=== PATIENT | male | born 1975 | race Two or more races ===

== ENCOUNTER 2024-06-28 06:27 | Day surgery (SDC) | payer OTHER ==
[2024-06-28] MEDS ORDERED: FLUMAZENIL 0.5 MG/5 ML ML IV STA (09:23)
[2024-06-28] MEDS ORDERED: DIPHENHYDRAMINE HCL 50 MG/ML VIAL 1ML IV ONE (09:30)
[2024-06-28] MEDS ORDERED: MIDAZOLAM HCL 2 MG/2 ML VIAL IV ONE (09:30)
[2024-06-28] MEDS ORDERED: fentaNYL CITRATE 50 MCG/ML AMPUL IV PUSH ONE (09:30)
== END 2024-06-28 10:40 | disposition home or self-care (01) ==
LOC: AMB-ENDOS 06:27
PROVIDERS: ATTEND Colon & Rectal Surgery
DX: D12.2 Benign neoplasm of ascending colon (principal); K63.5 Polyp of colon